=== PATIENT | female | born 1995 | race Two or more races ===

== ENCOUNTER 2019-07-01 14:10 | Emergency (ER) | payer OTHER ==
[2019-07-01 15:19] VITALS: BP 117/81; PULSE 91; TEMP 98.6; BMI 17.4
--- NOTE | 2019-07-01 17:27 | PDOC ---
History of Present Illness - General Chief Complaint: Sore Throat Stated Complaint: ALLERGIC REACTION Time Seen by Provider: 07/01/19 16:39 History Source: Patient Exam Limitations: No Limitations Past History - Travel Traveled outside of the country in the last 30 days: No Close contact w/someone who was outside of country & ill: No - Past Medical History Home Medications: Ambulatory Orders Azithromycin [Zithromax 250mg Tablets -] 250 mg PO UTDICT #6 tab 07/01/19 Diphenhydramine HCl [Benadryl -] 25 mg PO Q8H #21 capsule 07/01/19 COPD: No - Psycho Social/Smoking Cessation Hx Smoking History: Never smoked Hx Alcohol Use: No Drug/Substance Use Hx: No Review of Systems - Review of Systems Able to Perform ROS?: Yes Comments:: 07/01/19 17:22 CONSTITUTIONAL: Absent: fever, chills, diaphoresis, generalized weakness, malaise, loss of appetite HEENT: Present: Numbness in the throat absent: rhinorrhea, nasal congestion, throat pain, throat swelling, difficulty swallowing, mouth swelling, ear pain, eye pain, visual Changes CARDIOVASCULAR: Absent: chest pain, loss of consciousness, palpitations, irregular heart rate, peripheral edema RESPIRATORY: Absent: cough, shortness of breath, dyspnea with exertion, orthopnea, wheezing, stridor, hemoptysis GASTROINTESTINAL: Absent: abdominal pain, abdominal distension, nausea, vomiting, diarrhea, constipation, melena, hematochezia GENITOURINARY: Absent: dysuria, frequency, urgency, hesitancy, hematuria, flank pain, genital pain MUSCULOSKELETAL: Absent: myalgia, arthralgia, joint swelling SKIN: Absent: rash, itching, pallor HEMATOLOGIC/IMMUNOLOGIC: Absent: easy bleeding, easy bruising, lymphadenopathy, frequent infections ENDOCRINE: Absent: unexplained weight gain, unexplained weight loss, heat intolerance, cold intolerance NEUROLOGIC: Absent: headache, focal weakness or paresthesias, dizziness, unsteady gait, seizure, mental status changes, bladder or bowel incontinence PSYCHIATRIC: Absent: anxiety, depression, suicidal or homicidal ideation, hallucinations. Is the patient limited Panamanian proficient: No *Physical Exam - Vital Signs Last Vital Signs Temp Pulse Resp BP Pulse Ox 98.6 F 91 H 19 117/81 100 07/01/19 15:14 07/01/19 15:14 07/01/19 15:14 07/01/19 15:14 07/01/19 15:14 - Physical Exam 07/01/19 17:22 GENERAL: Well developed, well nourished. Awake and alert. No acute distress. HEENT: Normocephalic, atraumatic. PERRLA, EOMI. No conjunctival pallor. Sclera are non- icteric. Moist mucous membranes. Oropharynx is clear. NECK: Supple. Full ROM. No JVD. Carotid pulses 2+ and symmetric, without bruits. No thyromegaly. No lymphadenopathy. MUSCULOSKELETAL SKIN: Warm and dry. Normal capillary refill. No rashes. No jaundice. NEUROLOGICAL: Alert, awake, appropriate. Cranial nerves 2-12 intact. No deficits to light touch and temperature in face, upper extremities and lower extremities. No motor deficits in the in face, upper extremities and lower extremities. Normoreflexic in the upper and lower extremities. Normal speech. Toes are down-going bilaterally. Gait is normal without ataxia. PSYCHIATRIC: Cooperative. Good eye contact. Appropriate mood and affect. Medical Decision Making - Medical Decision Making 07/01/19 17:22 The patient is a 23-year-old female no past medical history who presents to the ER today for numbness in her throat and diarrhea. She states she is been taking amoxicillin for 3 days for her throat pain as prescribed by her primary care doctor. She states all her symptoms started after taking the amoxicillin. She was concerned because she noticed bumps on the back of her tongue so she came to the ER for evaluation. A/P: Adverse reaction On exam patient has prominent taste buds on the posterior tongue. The throat is nonerythematous. Airway is open clear and maintained. Patient is speaking in full sentences. No rash no stridor noted. Likely patient is just having an adverse reaction to the amoxicillin. We will switch patient to azithromycin Discharge home with primary care follow-up. I discussed the physical exam findings, ancillary test results and final diagnoses with the patient. I answered all of the patient's questions. The patient was satisfied with the care received and felt comfortable with the discharge plan and treatment plan. The Patient agrees to follow up with the primary care physician/specialist within 24-72 hours. Return precautions were given. Discharge - Discharge Information Problems reviewed: Yes Clinical Impression/Diagnosis: Adverse effects of medication Qualifiers: Encounter type: initial encounter Qualified Code(s): T50.905A - Adverse effect of unspecified drugs, medicaments and biological substances, initial encounter Condition: Stable Disposition: HOME - Admission No - Follow up/Referral Referrals: Wilber Bragg MD [Staff Physician] - - Patient Discharge Instructions Patient Printed Discharge Instructions: DI for Adverse Drug Reaction -- GI Intolerance Additional Instructions: You were evaluated for your diarrhea and tongue numbness today. It is most likely an adverse reaction from the amoxicillin. Please take Benadryl 25 mg every 8 hours until your symptoms resolve. Stop taking the amoxicillin. 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 Start taking it tonight. Follow-up with primary care this week. A referral has been provided to you. Return to the ER for difficulty breathing, shortness of breath or if you have any changes in your symptoms. - Post Discharge Activity
== END 2019-07-01 17:28 | disposition home or self-care (01) ==
LOC: JERFT 14:10
DX: R19.7 Diarrhea, unspecified (principal); R20.0 Anesthesia of skin; T36.0X5A Adverse effect of penicillins, initial encounter; Y92.038 Other place in apartment as the place of occurrence of the external cause
CPT/HCPCS: 99281-25

== ENCOUNTER 2020-12-30 18:43 | Emergency (ER) | payer OTHER ==
[2020-12-30 18:49] VITALS: BP 100/65; PULSE 101; TEMP 98.2; BMI 17.7
[2020-12-30] MEDS ORDERED: DOXYCYCLINE HYCLATE 100 MG CAPSULE PO ONE ×2 (20:09→20:17)
[2020-12-30] MEDS ORDERED: ONDANSETRON *ODT* 4 MG TABLET SL ONE (20:10)
[2020-12-30] MEDS ORDERED: ONDANSETRON *ODT* 4 MG TABLET ONE (20:17)
[2021-01-02 13:10] LABS: IgG Ab 23 kDa Band Absent (.); IgG Ab 28 kDa Band Absent (.)
[2021-01-02 15:11] LABS: E.chaff HME IgG Negative (Neg:<1:64)
== END 2020-12-30 20:39 | disposition home or self-care (01) ==
LOC: JERFT 18:43
DX: L03.115 Cellulitis of right lower limb (principal)
CPT/HCPCS: 36415; 82930; 86618; 86666; 86753; 99283-25; Q0162

== ENCOUNTER 2022-04-04 14:07 | Emergency (ER) | payer OTHER ==
[2022-04-04 14:19] VITALS: BP 105/67; PULSE 97; RESP 18; TEMP 99; BMI 16.5
[2022-04-04] MEDS ORDERED: IBUPROFEN 400 MG TABLET (FP) PO ONE ×2 (15:09→15:10)
== END 2022-04-04 15:35 | disposition home or self-care (01) ==
LOC: FER 14:07
DX: M54.50 Low back pain, unspecified (principal)
CPT/HCPCS: 81003; 81025; 87086; 99283-25